=== PATIENT | male | born 1985 | race Caucasian/White ===

== ENCOUNTER → 2023-02-16 | Outpatient (REF) | payer OTHER | LOC: M LABSMT 09:54 | PROVIDERS: ATTEND Urology | DX: Z30.2 Encounter for sterilization (principal) ==

== ENCOUNTER → 2023-05-05 | Outpatient (REF) | payer OTHER ==
[2023-05-05 11:13] LABS: SEMEN APPEARANCE OPAQUE (OPAQUE); SEMEN VISCOSITY VISCOUS (LIQUID); SEMEN VOLUME 2.4 ml (2.0-5.0)
[2023-05-05 11:14] LABS: WBC CONCENTRATION >1 M/ml (<=1 M/ml)
== END ==
LOC: M SMT 11:06
PROVIDERS: ATTEND Urology
DX: Z30.2 Encounter for sterilization (principal)